=== PATIENT | male | born 1985 | race Caucasian/White ===

== ENCOUNTER 2017-06-16 17:17 | Emergency (ER) | payer SELFPAY ==
[2017-06-16 17:38] VITALS: BP 147/95
[2017-06-16] MEDS ORDERED: LORazepam 1 MG Tab PO ONE (18:31)
--- NOTE | 2017-06-16 18:36 | EDM.PDOC ---
ED HPI GENERAL MEDICAL PROBLEM - General Chief Complaint: Chest Pain Stated Complaint: CHEST Time Seen by Provider: 06/16/17 18:20 Source of Information: Reports: Patient History Limitations: Reports: No Limitations - History of Present Illness INITIAL COMMENTS - FREE TEXT/NARRATIVE: 32 yo male presents with central chest pain for a couple weeks that waxes and wanes, but seems to be getting worse. Has an appt with his primary tomorrow. Is going through a divorce and is very stressed for the past month. Works in a paint shop. Denies fever, injury, calf pain, SOB, wheezing or leg swelling. Has been having a dry mouth and some mild nausea at times. Onset: Gradual Onset Date: 06/02/17 Duration: Week(s):, Waxing/Waning Location: Reports: Chest Quality: Reports: Dull Severity: Mild Improves with: Reports: None Worsens with: Reports: None Context: Reports: Other (under a lot of emotional stress.) Associated Symptoms: Reports: Nausea/Vomiting (mild, intermittent), Other (dry mouth) Treatments BLENDER/BRAZE APPLICATOR: Reports: Other (see below) (none) - Related Data Allergies Allergy/AdvReac Type Severity Reaction Status Date / Time No Known Allergies Allergy Verified 03/26/16 19:55 Home Meds: Home Meds NK [No Known Home Meds] 12/01/14 [History] Past Medical History HEENT History: Reports: Other (See Below) Other HEENT History: Hx strep Genitourinary History: Reports: Renal Calculus Musculoskeletal History: Reports: Fracture Other Musculoskeletal History: radial fx Neurological History: Reports: Migraines - Infectious Disease History Infectious Disease History: Reports: Chicken Pox - Past Surgical History Male Surgical History: Reports: Vasectomy Social & Family History - Tobacco Use Smoking Status *Q: Never Smoker Years of Tobacco use: 6 Packs/Tins Daily: 0.1 Used Tobacco, but Quit: No Second Hand Smoke Exposure: No - Caffeine Use Caffeine Use: Reports: Soda, Tea - Alcohol Use Days Per Week of Alcohol Use: 0 - Recreational Drug Use Recreational Drug Use: No ED ROS GENERAL - Review of Systems Review Of Systems: See Below Constitutional: Reports: No Symptoms HEENT: Reports: No Symptoms Respiratory: Reports: No Symptoms Cardiovascular: Reports: Chest Pain Endocrine: Reports: No Symptoms GI/Abdominal: Reports: Nausea (mild at times) : Reports: No Symptoms Musculoskeletal: Reports: No Symptoms Skin: Reports: No Symptoms Neurological: Reports: No Symptoms ED EXAM, GENERAL - Physical Exam Exam: See Below Exam Limited By: No Limitations General Appearance: Alert, WD/WN, No Apparent Distress Eye Exam: Bilateral Eye: Normal Inspection Ears: Normal External Exam, Normal Canal, Hearing Grossly Normal, Normal TMs Ear Exam: Bilateral Ear: Auricle Normal, Canal Normal Nose: Normal Inspection, Normal Mucosa, No Blood Throat/Mouth: Normal Inspection, Normal Lips, Normal Oropharynx, Normal Voice, No Airway Compromise Head: Atraumatic, Normocephalic Neck: Normal Inspection, Supple, Non-Tender Respiratory/Chest: No Respiratory Distress, Lungs Clear, Normal Breath Sounds, No Accessory Muscle Use Cardiovascular: Regular Rate, Rhythm, No Edema GI/Abdominal: Normal Bowel Sounds, Soft, Non-Tender, No Distention Back Exam: Normal Inspection. No: CVA Tenderness (R), CVA Tenderness (L) Extremities: Normal Inspection, Normal Range of Motion, Non-Tender, No Pedal Edema Neurological: Alert, Oriented, CN II-XII Intact, Normal Cognition, No Motor/ Sensory Deficits Psychiatric: Normal Affect, Normal Mood Skin Exam: Warm, Dry, Intact, Normal Color, No Rash Lymphatic: No Adenopathy Course - Vital Signs Text/Narrative:: Busy ER, patient got tired of waiting for his medication and walked out without notifying anyone. Last Recorded V/S: Last Vital Signs Temp 36.6 C 06/16/17 17:33 Pulse 97 06/16/17 17:33 Resp 20 06/16/17 17:33 BP 147/95 H 06/16/17 17:33 Pulse Ox 100 06/16/17 17:33 - Orders/Labs/Meds Meds: Medications Discontinued Medications Generic Name Dose Route Start Last Admin Trade Name Freq PRN Reason Stop Dose Admin Lorazepam 1 mg 06/16/17 18:31 Ativan PO 06/16/17 18:32 ONETIME ONE Departure - Departure Time of Disposition: 19:12 Disposition: Eloped 07 Condition: Good Clinical Impression: Stress, Anxiety with somatization Referrals: Pawel Dunn MD [Primary Care Provider] - Forms: ED Department Discharge
== END 2017-06-16 18:55 | disposition left against medical advice (07) ==
LOC: JP.ED 17:17
DX: F41.1 Generalized anxiety disorder (principal); F43.0 Acute stress reaction; F45.0 Somatization disorder
CPT/HCPCS: 93005; 93010; 99283; 99285-25

== ENCOUNTER 2017-10-24 17:27 | Emergency (ER) | payer SELFPAY ==
[2017-10-24 18:03] VITALS: BP 139/79
--- NOTE | 2017-10-24 18:24 | EDM.PDOC ---
ED HPI GENERAL MEDICAL PROBLEM - General Chief Complaint: ENT Problem Stated Complaint: SORE THROAT ESPICALL OF LEFT SIDE Time Seen by Provider: 10/24/17 18:00 Source of Information: Reports: Patient History Limitations: Reports: No Limitations - History of Present Illness INITIAL COMMENTS - FREE TEXT/NARRATIVE: 32-year-old male with a sore throat for the past 10-12 days. No fevers or chills , he does have some nasal drainage but no cough. He works away from the hospital and this is his first chance she's had to be checked. He is leaving tomorrow to go back to work for the next 7-14 days. He feels the left side of his neck is swollen and tender. He has developed ear pain today as well. Onset: Gradual Severity: Mild Associated Symptoms: Reports: Other (Left ear pain). Denies: Chest Pain, Cough , Fever/Chills, Malaise, Nausea/Vomiting, Shortness of Breath Throat Pain Score (Numeric/FACES): 6 - Related Data Allergies Allergy/AdvReac Type Severity Reaction Status Date / Time No Known Allergies Allergy Verified 03/26/16 19:55 Home Meds: Home Meds NK [No Known Home Meds] 12/01/14 [History] Past Medical History - Past Health History Medical/Surgical History: Denies Medical/Surgical History HEENT History: Reports: Other (See Below) Other HEENT History: Hx strep Genitourinary History: Reports: Renal Calculus Musculoskeletal History: Reports: Fracture Other Musculoskeletal History: radial fx Neurological History: Reports: Migraines - Infectious Disease History Infectious Disease History: Reports: Chicken Pox - Past Surgical History Male Surgical History: Reports: Vasectomy Social & Family History - Tobacco Use Smoking Status *Q: Current Every Day Smoker Years of Tobacco use: 10 Packs/Tins Daily: 0.5 - Caffeine Use Caffeine Use: Reports: Soda, Tea - Recreational Drug Use Recreational Drug Use: No ED ROS ENT - Review of Systems Review Of Systems: See Below Constitutional: Denies: Fever, Chills HEENT: Reports: Ear Pain, Throat Pain Respiratory: Denies: Shortness of Breath, Cough Cardiovascular: Denies: Chest Pain GI/Abdominal: Denies: Abdominal Pain, Nausea, Vomiting : Reports: No Symptoms Musculoskeletal: Reports: No Symptoms Skin: Denies: Rash Neurological: Denies: Headache ED EXAM, ENT - Physical Exam Exam: See Below Exam Limited By: No Limitations General Appearance: Alert, No Apparent Distress Ears: Normal TMs Mouth/Throat: Pharyngeal Erythema (There is pharyngeal erythema on the left side but no swelling, fluctuance or shift) Head: Atraumatic Neck: Lymphadenopathy (L) (He has lymphadenopathy which is tender on the left side of the anterior cervical chain. No erythema or warmth) Respiratory/Chest: No Respiratory Distress Course - Vital Signs Last Recorded V/S: Last Vital Signs Temp 98.6 F 10/24/17 17:59 Pulse 88 10/24/17 17:59 Resp 16 10/24/17 17:59 BP 139/79 10/24/17 17:59 Pulse Ox 99 10/24/17 17:59 - Re-Assessments/Exams Free Text/Narrative Re-Assessment/Exam: 10/24/17 18:22 Patient will be placed on amoxicillin 500 mg 3 times a day for 10 days and should continue the medication if improving. He will be out of town for a culture result with strep so that will be deferred. He will recheck when home if he hasn't improved on the antibiotic, he may need more evaluation of the lymphadenopathy. Departure - Departure Time of Disposition: 18:29 Disposition: Home, Self-Care 01 Condition: Good Clinical Impression: Lymphadenopathy of head and neck Pharyngitis Qualifiers: Pharyngitis/tonsillitis etiology: unspecified etiology Qualified Code(s): J02.9 - Acute pharyngitis, unspecified - Discharge Information Instructions: Pharyngitis, [id number] Referrals: Pawel Dunn MD [Primary Care Provider] - Forms: ED Department Discharge Care Plan Goals: Take antibiotic 3 times a day, continue with ibuprofen and stay hydrated. Finish antibiotic if improving, and recheck when home if not significantly improved despite treatment. Recheck sooner if possible if worsening.
== END 2017-10-24 18:29 | disposition home or self-care (01) ==
LOC: JP.ED 17:27
DX: J02.9 Acute pharyngitis, unspecified (principal); F17.210 Nicotine dependence, cigarettes, uncomplicated
CPT/HCPCS: 99283

== ENCOUNTER 2019-02-28 09:55 | Emergency (ER) | payer SELFPAY ==
[2019-02-28 10:09] VITALS: BP 149/103; PULSE 84
[2019-02-28] MEDS ORDERED: Ondansetron 4 MG/2 ML SDV IVPUSH ONE (10:35)
[2019-02-28] MEDS ORDERED: Pantoprazole 40 MG Vial IVPUSH ONE (10:35)
--- NOTE | 2019-02-28 10:36 | EDM.PDOC ---
ED HPI GENERAL MEDICAL PROBLEM - General Chief Complaint: ENT Problem Stated Complaint: VOMITING,SORE THROAT Time Seen by Provider: 02/28/19 10:34 Source of Information: Reports: Patient History Limitations: Reports: No Limitations - History of Present Illness INITIAL COMMENTS - FREE TEXT/NARRATIVE: pt arrived compaining of a very sore throat. he has been vomiting for the past 36 hours. He states he is not having abdomanal pain. Onset: Other (pt has been vomiting for the past 2 days and has not been able to hold anything down. ) Duration: Hour(s): Location: Reports: Abdomen, Generalized, Other (pt is feeling very weak and shakey. ) Associated Symptoms: Reports: Nausea/Vomiting, Weakness - Related Data Allergies Allergy/AdvReac Type Severity Reaction Status Date / Time No Known Allergies Allergy Verified 03/26/16 19:55 Home Meds: Home Meds NK [No Known Home Meds] 12/01/14 [History] Past Medical History - Past Health History Medical/Surgical History: Denies Medical/Surgical History HEENT History: Reports: Other (See Below) Other HEENT History: Hx strep Genitourinary History: Reports: Renal Calculus Musculoskeletal History: Reports: Fracture Other Musculoskeletal History: radial fx Neurological History: Reports: Migraines - Infectious Disease History Infectious Disease History: Reports: Chicken Pox - Past Surgical History Male Surgical History: Reports: Vasectomy Social & Family History - Tobacco Use Smoking Status *Q: Heavy Tobacco Smoker Years of Tobacco use: 15 Packs/Tins Daily: 0.5 - Caffeine Use Caffeine Use: Reports: Soda - Recreational Drug Use Recreational Drug Use: No ED ROS GENERAL - Review of Systems Review Of Systems: See Below Constitutional: Reports: Weakness, Fatigue HEENT: Reports: No Symptoms Respiratory: Reports: No Symptoms Cardiovascular: Reports: No Symptoms Endocrine: Reports: No Symptoms GI/Abdominal: Reports: Decreased Appetite, Nausea, Vomiting : Reports: No Symptoms Musculoskeletal: Reports: No Symptoms Skin: Reports: No Symptoms ED EXAM, DIZZINESS - Physical Exam Exam: See Below Text/Narrative:: pt arrived after vomiting for the past 36 hours. He has a very sore throat. He thinks this is from vomiting. Exam Limited By: No Limitations General Appearance: Alert, Anxious, Mild Distress Ears: Normal TMs Nose: Normal Inspection Throat/Mouth: Other ( throat does look red. He did have a strept and this was neg. ) Head Exam: Atraumatic Neck: Normal Inspection Respiratory/Chest: No Respiratory Distress Cardiovascular: Regular Rate, Rhythm, Tachycardia GI/Abdominal: Other ( no guarding or tenderness. ) (Male) Exam: Deferred Rectal (Males) Exam: Deferred Neurological: Alert, Oriented x 3 Back Exam: Normal Inspection Extremities: Normal Inspection Psychiatric: Anxious Course - Vital Signs Last Recorded V/S: Last Vital Signs Temp 36.8 C 02/28/19 10:09 Pulse 84 02/28/19 10:09 Resp 18 02/28/19 10:09 BP 149/103 H 02/28/19 10:09 Pulse Ox 99 02/28/19 10:09 - Orders/Labs/Meds Labs: Laboratory Tests 02/28/19 02/28/19 02/28/19 Range/Units 10:38 10:47 10:47 WBC 9.1 (4.5-11.0) K/uL RBC 4.96 (4.30-5.90) M/uL Hgb 15.5 H (12.0-15.0) g/dL Hct 45.3 (40.0-54.0) % MCV 91 (80-98) fL MCH 31 (27-31) pg MCHC 34 (32-36) % Plt Count 227 (150-400) K/uL Neut % (Auto) 83 H (36-66) % Lymph % (Auto) 7 L (24-44) % [place] % (Auto) 8 H (2-6) % Eos % (Auto) 1 L (2-4) % Baso % (Auto) 1 (0-1) % Sodium 138 L (140-148) mmol/L Potassium 3.4 L (3.6-5.2) mmol/L Chloride 98 L (100-108) mmol/L Carbon Dioxide 29 (21-32) mmol/L Anion Gap 14.4 H (5.0-14.0) mmol/L BUN 9 (7-18) mg/dL Creatinine 1.2 (0.8-1.3) mg/dL Est Cr Clr Drug Dosing 87.88 mL/min Estimated GFR (MDRD) > 60 (>60) Glucose 100 (74-106) mg/dL Calcium 9.1 (8.5-10.1) mg/dL Total Bilirubin 0.5 (0.2-1.0) mg/dL AST 36 (15-37) U/L ALT 35 (12-78) U/L Alkaline Phosphatase 61 (46-116) U/L C-Reactive Protein (0.0-0.3) mg/dL Total Protein 7.4 (6.4-8.2) g/dL Albumin 3.9 (3.4-5.0) g/dL Globulin 3.5 (2.3-3.5) g/dL Albumin/Globulin Ratio 1.1 L (1.2-2.2) Urine Color Yellow (YELLOW) Urine Appearance Clear (CLEAR) Urine pH 8.0 (5.0-8.0) Ur Specific [place] 1.015 (1.008-1.030) Urine Protein Negative (NEGATIVE) mg/dL Urine Glucose (UA) Negative (NEGATIVE) mg/dL Urine Ketones Negative (NEGATIVE) mg/dL Urine Occult Blood Negative (NEGATIVE) Urine Nitrite Negative (NEGATIVE) Urine Bilirubin Negative (NEGATIVE) Urine Urobilinogen 0.2 (0.2-1.0) EU/dL Ur Leukocyte Esterase Negative (NEGATIVE) Urine RBC 0-5 (0-5) Urine WBC 0-5 (0-5) Ur Epithelial Cells Few Amorphous Sediment Not seen Urine Bacteria Few Urine Mucus Not seen 02/28/19 Range/Units 10:47 WBC (4.5-11.0) K/uL RBC (4.30-5.90) M/uL Hgb (12.0-15.0) g/dL Hct (40.0-54.0) % MCV (80-98) fL MCH (27-31) pg MCHC (32-36) % Plt Count (150-400) K/uL Neut % (Auto) (36-66) % Lymph % (Auto) (24-44) % [place] % (Auto) (2-6) % Eos % (Auto) (2-4) % Baso % (Auto) (0-1) % Sodium (140-148) mmol/L Potassium (3.6-5.2) mmol/L Chloride (100-108) mmol/L Carbon Dioxide (21-32) mmol/L Anion Gap (5.0-14.0) mmol/L BUN (7-18) mg/dL Creatinine (0.8-1.3) mg/dL Est Cr Clr Drug Dosing mL/min Estimated GFR (MDRD) (>60) Glucose (74-106) mg/dL Calcium (8.5-10.1) mg/dL Total Bilirubin (0.2-1.0) mg/dL AST (15-37) U/L ALT (12-78) U/L Alkaline Phosphatase (46-116) U/L C-Reactive Protein < 0.05 (0.0-0.3) mg/dL Total Protein (6.4-8.2) g/dL Albumin (3.4-5.0) g/dL Globulin (2.3-3.5) g/dL Albumin/Globulin Ratio (1.2-2.2) Urine Color (YELLOW) Urine Appearance (CLEAR) Urine pH (5.0-8.0) Ur Specific [place] (1.008-1.030) Urine Protein (NEGATIVE) mg/dL Urine Glucose (UA) (NEGATIVE) mg/dL Urine Ketones (NEGATIVE) mg/dL Urine Occult Blood (NEGATIVE) Urine Nitrite (NEGATIVE) Urine Bilirubin (NEGATIVE) Urine Urobilinogen (0.2-1.0) EU/dL Ur Leukocyte Esterase (NEGATIVE) Urine RBC (0-5) Urine WBC (0-5) Ur Epithelial Cells Amorphous Sediment Urine Bacteria Urine Mucus Meds: Medications Discontinued Medications Generic Name Dose Route Start Last Admin Trade Name Freq PRN Reason Stop Dose Admin Lidocaine HCl 30 ml/ Al 0 ml 02/28/19 11:18 Hydroxide/Mg Hydroxide 30 ml/ MUCMEM Diphenhydramine HCl 75 mg Q4H PRN MOUTH CARE Lidocaine HCl 5 ml/ Al 0 ml 02/28/19 11:34 02/28/19 11:48 Hydroxide/Mg Hydroxide 5 ml/ MUCMEM 15 ml Diphenhydramine HCl 12.5 mg Q4H PRN Administration MOUTH CARE Al Hydroxide/Mg Hydroxide 15 0 ml 02/28/19 12:19 02/28/19 12:38 ml/ Lidocaine HCl 15 ml PO 02/28/19 12:20 15 ml ONETIME ONE Administration Sodium Chloride 1,000 mls @ 999 mls/hr 02/28/19 10:45 02/28/19 10:46 Normal Saline IV 999 mls/hr ASDIRECTED ZAKIA Administration Sodium Chloride 1,000 mls @ 999 mls/hr 02/28/19 11:30 02/28/19 11:48 Normal Saline IV 999 mls/hr ASDIRECTED ZAKIA Administration Ondansetron HCl 4 mg 02/28/19 10:35 02/28/19 10:46 Zofran IVPUSH 02/28/19 10:36 4 mg ONETIME ONE Administration Pantoprazole Sodium 40 mg 02/28/19 10:35 02/28/19 10:46 Protonix Iv IVPUSH 02/28/19 10:36 40 mg ONETIME ONE Administration - Re-Assessments/Exams Free Text/Narrative Re-Assessment/Exam: 03/07/19 19:54 pt was given 2 liters of fluid and zoforan. He was having ice chips and tolerated that. He was informed about his strept and labs. Before we could in with the discharge papers he did leave. Departure - Departure Time of Disposition: 15:45 Disposition: Eloped 07 Condition: Fair Clinical Impression: Gastroenteritis, Dehydration - Discharge Information Referrals: Pawel Dunn MD [Primary Care Provider] - Forms: ED Department Discharge Care Plan Goals: pt dung
[2019-02-28] MEDS ORDERED: Sodium Chloride 0.9% 1,000 ML IV SCH ×2 (10:45→11:30)
[2019-02-28] MEDS ORDERED: Lidocaine 2% 30 ML, Alum Hydrox/Mag Hydrox/Simeth 30 ML, diphenhydrAMINE 75 MG MUCMEM PRN ×3 (11:18)
[2019-02-28] MEDS ORDERED: Lidocaine 2% 5 ML, Alum Hydrox/Mag Hydrox/Simeth 5 ML, diphenhydrAMINE 12.5 MG MUCMEM PRN ×3 (11:34)
[2019-02-28] MEDS ORDERED: Alum Hydrox/Mag Hydrox/Simeth 15 ML, Lidocaine 2% 15 ML PO ONE ×2 (12:19)
== END 2019-02-28 14:45 | disposition left against medical advice (07) ==
LOC: JP.ED 09:55
DX: K52.9 Noninfective gastroenteritis and colitis, unspecified (principal); E86.0 Dehydration; F17.210 Nicotine dependence, cigarettes, uncomplicated
CPT/HCPCS: 36415; 80053; 81001; 85025; 86140; 87081; 87880; 96361; 96374; 96375; 99283; A9270; C9113; J2405; J7030

== ENCOUNTER 2020-04-30 21:48 | Emergency (ER) | payer MEDICAID ==
--- NOTE | 2020-04-30 22:38 | EDM.PDOCBH ---
<OfficerMacario - Last Filed: 04/30/20 22:35> ED HPI GENERAL MEDICAL PROBLEM - General Chief Complaint: Drug or Alcohol Abuse Stated Complaint: EVAL Time Seen by Provider: 04/30/20 22:27 Source of Information: Reports: Patient, Family, RN Notes Reviewed History Limitations: Reports: Intoxication - History of Present Illness INITIAL COMMENTS - FREE TEXT/NARRATIVE: 35-year-old gentleman presents emergency department today for psychiatric evaluation, he admits to consuming a large amount of alcohol today he is brought in by family members he states he has contemplating harming himself with a firearm which is why he was brought in however he does not admit this to me he does admit to consuming alcohol states he just has thoughts of suicide left eye Pain Score (Numeric/FACES): 3 - Related Data Allergies Allergy/AdvReac Type Severity Reaction Status Date / Time No Known Allergies Allergy Verified 04/30/20 21:57 Home Meds: Home Meds NK [No Known Home Meds] 12/01/14 [History] Past Medical History HEENT History: Reports: Other (See Below) Other HEENT History: Hx strep Cardiovascular History: Reports: Hypertension Gastrointestinal History: Reports: GERD Genitourinary History: Reports: Renal Calculus Musculoskeletal History: Reports: Fracture Other Musculoskeletal History: radial fx Neurological History: Reports: Migraines Psychiatric History: Reports: Addiction, Anxiety, Depression, Suicidal Ideation, Other (See Below) Other Psychiatric History: ETOH - Infectious Disease History Infectious Disease History: Reports: Chicken Pox - Past Surgical History Male Surgical History: Reports: Vasectomy Social & Family History - Tobacco Use Tobacco Use Status *Q: Current Every Day Tobacco User Years of Tobacco use: 15 Packs/Tins Daily: 1 - Caffeine Use Caffeine Use: Reports: Energy Drinks, Soda - Recreational Drug Use Recreational Drug Use: No ED ROS GENERAL - Review of Systems Review Of Systems: See Below Constitutional: Reports: No Symptoms HEENT: Reports: No Symptoms Respiratory: Reports: No Symptoms Cardiovascular: Reports: No Symptoms GI/Abdominal: Reports: No Symptoms Neurological: Reports: No Symptoms Psychiatric: Reports: Depression, Suicidal Ideation ED EXAM, BEHAVIORAL HEALTH - Physical Exam Exam: See Below Text/Narrative:: Orientated to person place and time, appropriately dressed, well groomed, memory to recent and remote events intact, good attention and concentration, speech is of adequate rate tone and volume, good fund of knowledge, language is appropriate, Mood and affect are depressed, no pressured thoughts, positive for suicidal ideation, denies homicidal ideation, no hallucinations visual or auditory, poor judgment, poor insight Exam Limited By: Intoxication General Appearance: Alert, WD/WN, No Apparent Distress Respiratory/Chest: No Respiratory Distress, Lungs Clear, Normal Breath Sounds, No Accessory Muscle Use, Chest Non-Tender Cardiovascular: Regular Rate, Rhythm, No Murmur Departure - Departure Disposition: DC/Tfer to Other 70 Clinical Impression: Alcohol abuse - Discharge Information Instructions: Alcohol Use Disorder Referrals: Pawel Dunn MD [Primary Care Provider] - Forms: ED Department Discharge Care Plan Goals: Go directly to [facility] to be admitted for detox and initiation of treatment for chronic alcohol abuse. Sepsis Event Note (ED) - Evaluation Sepsis Screening Result: No Definite Risk <Fransico Bowser - Last Filed: 05/01/20 12:35> COURSE, BEHAVIORAL HEALTH COMP - Course Vital Signs: Last Vital Signs Temp 98.2 F 04/30/20 22:25 Pulse 89 05/01/20 08:52 Resp 16 05/01/20 08:52 BP 138/96 H 05/01/20 08:52 Pulse Ox 98 05/01/20 08:52 Orders, Labs, Meds: Laboratory Tests 04/30/20 04/30/20 04/30/20 Range/Units 22:50 22:50 22:50 WBC 7.8 (4.5-11.0) K/uL RBC 5.42 (4.30-5.90) M/uL Hgb 16.7 H (12.0-15.0) g/dL Hct 50.2 (40.0-54.0) % MCV 93 (80-98) fL MCH 31 (27-31) pg MCHC 33 (32-36) % Plt Count 200 (150-400) K/uL Neut % (Auto) 63 (36-66) % Lymph % (Auto) 30 (24-44) % [place] % (Auto) 5 (2-6) % Eos % (Auto) 1 L (2-4) % Baso % (Auto) 1 (0-1) % Sodium 141 (140-148) mmol/L Potassium 4.0 (3.6-5.2) mmol/L Chloride 99 L (100-108) mmol/L Carbon Dioxide 32 (21-32) mmol/L Anion Gap 14.0 (5.0-14.0) mmol/L BUN 12 (7-18) mg/dL Creatinine 1.3 (0.8-1.3) mg/dL Est Cr Clr Drug Dosing 82.67 mL/min Estimated GFR (MDRD) > 60 (>60) Glucose 104 (74-106) mg/dL Calcium 9.1 (8.5-10.1) mg/dL Total Bilirubin 0.3 (0.2-1.0) mg/dL AST 42 H (15-37) U/L ALT 43 (12-78) U/L Alkaline Phosphatase 76 (46-116) U/L Total Protein 7.7 (6.4-8.2) g/dL Albumin 4.0 (3.4-5.0) g/dL Globulin 3.7 H (2.3-3.5) g/dL Albumin/Globulin Ratio 1.1 L (1.2-2.2) Urine Opiates Screen Negative (NEGATIVE) Ur Oxycodone Screen Negative (NEGATIVE) Urine Methadone Screen Negative (NEGATIVE) Ur Propoxyphene Screen Negative (NEGATIVE) Ur Barbiturates Screen Negative (NEGATIVE) Ur Tricyclics Screen Negative (NEGATIVE) Ur Phencyclidine Scrn Negative (NEGATIVE) Ur Amphetamine Screen Negative (NEGATIVE) U Methamphetamines Scrn Negative (NEGATIVE) Urine MDMA Screen Negative (NEGATIVE) U Benzodiazepines Scrn Negative (NEGATIVE) U Cocaine Metab Screen Negative (NEGATIVE) U Marijuana (THC) Screen Negative (NEGATIVE) Ethyl Alcohol mg/dL 04/30/20 Range/Units 22:50 WBC (4.5-11.0) K/uL RBC (4.30-5.90) M/uL Hgb (12.0-15.0) g/dL Hct (40.0-54.0) % MCV (80-98) fL MCH (27-31) pg MCHC (32-36) % Plt Count (150-400) K/uL Neut % (Auto) (36-66) % Lymph % (Auto) (24-44) % [place] % (Auto) (2-6) % Eos % (Auto) (2-4) % Baso % (Auto) (0-1) % Sodium (140-148) mmol/L Potassium (3.6-5.2) mmol/L Chloride (100-108) mmol/L Carbon Dioxide (21-32) mmol/L Anion Gap (5.0-14.0) mmol/L BUN (7-18) mg/dL Creatinine (0.8-1.3) mg/dL Est Cr Clr Drug Dosing mL/min Estimated GFR (MDRD) (>60) Glucose (74-106) mg/dL Calcium (8.5-10.1) mg/dL Total Bilirubin (0.2-1.0) mg/dL AST (15-37) U/L ALT (12-78) U/L Alkaline Phosphatase (46-116) U/L Total Protein (6.4-8.2) g/dL Albumin (3.4-5.0) g/dL Globulin (2.3-3.5) g/dL Albumin/Globulin Ratio (1.2-2.2) Urine Opiates Screen (NEGATIVE) Ur Oxycodone Screen (NEGATIVE) Urine Methadone Screen (NEGATIVE) Ur Propoxyphene Screen (NEGATIVE) Ur Barbiturates Screen (NEGATIVE) Ur Tricyclics Screen (NEGATIVE) Ur Phencyclidine Scrn (NEGATIVE) Ur Amphetamine Screen (NEGATIVE) U Methamphetamines Scrn (NEGATIVE) Urine MDMA Screen (NEGATIVE) U Benzodiazepines Scrn (NEGATIVE) U Cocaine Metab Screen (NEGATIVE) U Marijuana (THC) Screen (NEGATIVE) Ethyl Alcohol 298 mg/dL Medications Discontinued Medications Generic Name Dose Route Start Last Admin Trade Name Freq PRN Reason Stop Dose Admin Lorazepam 1 mg 05/01/20 04:43 05/01/20 04:47 Ativan PO 05/01/20 04:44 1 mg ONETIME ONE Administration Lorazepam 1 mg 05/01/20 09:42 05/01/20 09:52 Ativan IM 05/01/20 09:43 1 mg ONETIME ONE Administration Ondansetron HCl 4 mg 05/01/20 09:42 05/01/20 09:52 Zofran Odt PO 05/01/20 09:43 4 mg ONETIME ONE Administration Re-Assessment/Re-Exam: 35-year-old male who arrived 10 hours ago intoxicated with suicidal ideations was turned over to my care by Officer. Patient is now woke up and is no longer suicidal but wants to go to detox and get help. [facility] does have a bed available, we will attempt to get him out there to initiate treatment. Prior to being accepted to detox, the patient developed some nausea and vomiting and became anxious. He was given 1 mg of IM Ativan and a sublingual Zofran. Patient was accepted at [facility] and transferred by his ex-. Departure - Departure Time of Disposition: 10:26 Sepsis Event Note (ED) - Focused Exam Vital Signs: Vital Signs Pulse Resp BP Pulse Ox 05/01/20 08:52 89 16 138/96 H 98
[2020-05-01] MEDS ORDERED: LORazepam 1 MG Tab PO ONE (04:43)
[2020-05-01 08:53] VITALS: BP 138/96; PULSE 89
[2020-05-01] MEDS ORDERED: Ondansetron 4 MG Tab.DIS PO ONE (09:42)
[2020-05-01] MEDS ORDERED: LORazepam 2 MG/ML SDV IM ONE (09:42)
== END 2020-05-01 10:48 | disposition other institution (70) ==
LOC: JP.ED 21:48
DX: F10.129 Alcohol abuse with intoxication, unspecified (principal); R45.851 Suicidal ideations; I10 Essential (primary) hypertension; F17.210 Nicotine dependence, cigarettes, uncomplicated; Y90.8 Blood alcohol level of 240 mg/100 ml or more
CPT/HCPCS: 36415; 80053; 80305; 80307; 85025; 96372; 99283; 99284; A9270; J2060

== ENCOUNTER 2020-05-11 00:04 | Emergency (ER) | payer MEDICAID ==
[2020-05-11] MEDS ORDERED: LORazepam 1 MG Tab PO ONE ×3 (00:52→01:50)
[2020-05-11] MEDS ORDERED: Thiamine 100 MG Tab PO ONE (00:53)
[2020-05-11] MEDS ORDERED: Ondansetron 4 MG Tab.DIS PO ONE (00:56)
[2020-05-11] MEDS ORDERED: Sodium Chloride 0.9% 10 ML Syringe FLUSH PRN (01:03)
--- NOTE | 2020-05-11 01:04 | EDM.PDOCBH ---
ED HPI GENERAL MEDICAL PROBLEM - General Chief Complaint: Drug or Alcohol Abuse Stated Complaint: WITHDRAWL SYMPTOMS Time Seen by Provider: 05/11/20 00:50 Source of Information: Reports: Patient, RN. Denies: Old Records History Limitations: Reports: No Limitations - History of Present Illness INITIAL COMMENTS - FREE TEXT/NARRATIVE: 35 yo male who drinks about a liter of vodka daily presents with shakes and a request for help for his drinking problem. He plans on going next week to a rehab facility in [place] near where his mother lives. He stopped drinking about 24 hrs ago. He has not had seizures from quitting drinking, but states he can't remember the last time he didn't drink. No blood in stool or in his emesis, but is vomiting often today. Denies use of other drugs. Onset: Gradual Onset Date: 05/10/20 Duration: Day(s): (1), Getting Worse Location: Reports: Generalized Quality: Reports: Other (abdominal pain from vomiting so many times) Severity: Severe Improves with: Reports: None Worsens with: Reports: Other (time) Context: Reports: Other (See HPI) Associated Symptoms: Reports: Nausea/Vomiting, Other (tremor) Treatments APICULTURIST: Reports: Other (see below) (none) denies pain Pain Score (Numeric/FACES): 0 - Related Data Allergies Allergy/AdvReac Type Severity Reaction Status Date / Time No Known Allergies Allergy Verified 05/11/20 01:23 Home Meds: Home Meds NK [No Known Home Meds] 12/01/14 [History] Past Medical History HEENT History: Reports: Other (See Below) Other HEENT History: Hx strep Cardiovascular History: Reports: Hypertension Gastrointestinal History: Reports: GERD Genitourinary History: Reports: Renal Calculus Musculoskeletal History: Reports: Fracture Other Musculoskeletal History: radial fx Neurological History: Reports: Migraines Psychiatric History: Reports: Addiction, Anxiety, Depression, Suicidal Ideation, Other (See Below) Other Psychiatric History: ETOH - Infectious Disease History Infectious Disease History: Reports: Chicken Pox - Past Surgical History Male Surgical History: Reports: Vasectomy Social & Family History - Caffeine Use Caffeine Use: Reports: Energy Drinks, Soda - Recreational Drug Use Recreational Drug Use: No ED ROS GENERAL - Review of Systems Review Of Systems: See Below Constitutional: Reports: Malaise, Decreased Appetite HEENT: Reports: No Symptoms Respiratory: Reports: No Symptoms Cardiovascular: Reports: Palpitations Endocrine: Reports: No Symptoms GI/Abdominal: Reports: Abdominal Pain, Nausea, Vomiting. Denies: Black Stool, Bloody Stool, Constipation, Diarrhea, Hematemesis, Hematochezia, Melena : Reports: No Symptoms Musculoskeletal: Reports: No Symptoms Skin: Reports: No Symptoms Neurological: Reports: Other (tremors) Psychiatric: Reports: Anxiety ED EXAM, BEHAVIORAL HEALTH - Physical Exam Exam: See Below Exam Limited By: No Limitations General Appearance: Alert, WD/WN, Moderate Distress Eye Exam: Bilateral Eye: Normal Inspection Ears: Normal External Exam, Normal Canal, Hearing Grossly Normal, Normal TMs Nose: Normal Inspection, No Blood Throat/Mouth: Normal Inspection, Normal Lips, Normal Oropharynx, Normal Voice, No Airway Compromise Head: Atraumatic, Normocephalic Neck: Normal Inspection Respiratory/Chest: No Respiratory Distress, Lungs Clear, Normal Breath Sounds, No Accessory Muscle Use Cardiovascular: Regular Rate, Rhythm, No Edema, Tachycardia GI/Abdominal: Normal Bowel Sounds, Soft, No Distention, Tender (epigastric and RUQ). No: Distended Back Exam: Normal Inspection Extremities: Normal Inspection, Normal Range of Motion, Non-Tender, No Pedal Edema Neurological: Alert, Normal Mood/Affect, CN II-XII Intact, Normal Cognition, No Motor/Sensory Deficits, Oriented x 3 Psychiatric: Alert, Normal Affect, Normal Cognition, Normal Mood, Restless Skin Exam: Warm, Dry, Intact, Normal color, No rash COURSE, BEHAVIORAL HEALTH COMP - Course Vital Signs: Last Vital Signs Temp 36.4 C 05/11/20 00:56 Pulse 87 05/11/20 01:14 Resp 18 05/11/20 00:56 BP 166/104 H 05/11/20 01:14 Pulse Ox 99 05/11/20 00:56 Orders, Labs, Meds: Active Orders 24 hr Category Date Time Status Sodium Chloride 0.9% [Saline Flush] Med 05/11/20 01:03 Active 10 ml FLUSH ASDIRECTED PRN Saline Lock Insert [OM.PC] Routine Oth 05/11/20 01:03 Ordered Medication Orders Sodium Chloride (Saline Flush) 10 ml FLUSH ASDIRECTED PRN PRN Reason: Keep Vein Open Last Admin: 05/11/20 01:06 Dose: 10 ml Documented by: PINO Laboratory Tests 05/11/20 05/11/20 05/11/20 Range/Units 01:11 01:11 01:11 WBC 8.2 (4.5-11.0) K/uL RBC 5.02 (4.30-5.90) M/uL Hgb 15.7 H (12.0-15.0) g/dL Hct 46.7 (40.0-54.0) % MCV 93 (80-98) fL MCH 31 (27-31) pg MCHC 34 (32-36) % Plt Count 157 (150-400) K/uL Sodium 135 L (140-148) mmol/L Potassium 3.7 (3.6-5.2) mmol/L Chloride 94 L (100-108) mmol/L Carbon Dioxide 27 (21-32) mmol/L Anion Gap 17.7 H (5.0-14.0) mmol/L BUN 7 (7-18) mg/dL Creatinine 1.1 (0.8-1.3) mg/dL Est Cr Clr Drug Dosing 97.70 mL/min Estimated GFR (MDRD) > 60 (>60) Glucose 108 H (74-106) mg/dL Calcium 9.1 (8.5-10.1) mg/dL Magnesium (1.8-2.4) mg/dL Total Bilirubin 0.5 D (0.2-1.0) mg/dL AST 74 H D (15-37) U/L ALT 64 (12-78) U/L Alkaline Phosphatase 75 (46-116) U/L Total Protein 7.8 (6.4-8.2) g/dL Albumin 4.0 (3.4-5.0) g/dL Globulin 3.8 H (2.3-3.5) g/dL Albumin/Globulin Ratio 1.1 L (1.2-2.2) Urine Opiates Screen (NEGATIVE) Ur Oxycodone Screen (NEGATIVE) Urine Methadone Screen (NEGATIVE) Ur Propoxyphene Screen (NEGATIVE) Ur Barbiturates Screen (NEGATIVE) Ur Tricyclics Screen (NEGATIVE) Ur Phencyclidine Scrn (NEGATIVE) Ur Amphetamine Screen (NEGATIVE) U Methamphetamines Scrn (NEGATIVE) Urine MDMA Screen (NEGATIVE) U Benzodiazepines Scrn (NEGATIVE) U Cocaine Metab Screen (NEGATIVE) U Marijuana (THC) Screen (NEGATIVE) Ethyl Alcohol 7 mg/dL 05/11/20 05/11/20 Range/Units 01:11 01:27 WBC (4.5-11.0) K/uL RBC (4.30-5.90) M/uL Hgb (12.0-15.0) g/dL Hct (40.0-54.0) % MCV (80-98) fL MCH (27-31) pg MCHC (32-36) % Plt Count (150-400) K/uL Sodium (140-148) mmol/L Potassium (3.6-5.2) mmol/L Chloride (100-108) mmol/L Carbon Dioxide (21-32) mmol/L Anion Gap (5.0-14.0) mmol/L BUN (7-18) mg/dL Creatinine (0.8-1.3) mg/dL Est Cr Clr Drug Dosing mL/min Estimated GFR (MDRD) (>60) Glucose (74-106) mg/dL Calcium (8.5-10.1) mg/dL Magnesium 1.3 L (1.8-2.4) mg/dL Total Bilirubin (0.2-1.0) mg/dL AST (15-37) U/L ALT (12-78) U/L Alkaline Phosphatase (46-116) U/L Total Protein (6.4-8.2) g/dL Albumin (3.4-5.0) g/dL Globulin (2.3-3.5) g/dL Albumin/Globulin Ratio (1.2-2.2) Urine Opiates Screen Negative (NEGATIVE) Ur Oxycodone Screen Negative (NEGATIVE) Urine Methadone Screen Negative (NEGATIVE) Ur Propoxyphene Screen Negative (NEGATIVE) Ur Barbiturates Screen Negative (NEGATIVE) Ur Tricyclics Screen Negative (NEGATIVE) Ur Phencyclidine Scrn Negative (NEGATIVE) Ur Amphetamine Screen Negative (NEGATIVE) U Methamphetamines Scrn Negative (NEGATIVE) Urine MDMA Screen Negative (NEGATIVE) U Benzodiazepines Scrn Presumptive positive H (NEGATIVE) U Cocaine Metab Screen Negative (NEGATIVE) U Marijuana (THC) Screen Negative (NEGATIVE) Ethyl Alcohol mg/dL Medications Generic Name Dose Route Start Last Admin Trade Name Freq PRN Reason Stop Dose Admin Sodium Chloride 10 ml 05/11/20 01:03 05/11/20 01:06 Saline Flush FLUSH 10 ml ASDIRECTED PRN Administration Keep Vein Open Discontinued Medications Generic Name Dose Route Start Last Admin Trade Name Gage PRN Reason Stop Dose Admin Lorazepam 1 mg 05/11/20 00:52 05/11/20 01:05 Ativan PO 05/11/20 00:53 1 mg ONETIME ONE Administration Lorazepam 1 mg 05/11/20 00:58 05/11/20 01:05 Ativan PO 05/11/20 00:59 1 mg ONETIME ONE Administration Ondansetron HCl 4 mg 05/11/20 00:56 05/11/20 01:05 Zofran Odt PO 05/11/20 00:57 4 mg ONETIME ONE Administration Thiamine HCl 100 mg 05/11/20 00:53 05/11/20 01:05 Vitamin B-1 PO 05/11/20 00:54 100 mg ONETIME ONE Administration Re-Assessment/Re-Exam: Refuses detox at [facility], wants to go home tonight and will drive tomorrow to the facility in [place] that he is determined to go to. Departure - Departure Time of Disposition: 01:50 Disposition: Home, Self-Care 01 Condition: Poor Clinical Impression: Alcohol dependence Qualifiers: Substance use status: in withdrawal Complication of substance-induced condition: uncomplicated Qualified Code(s): F10.230 - Alcohol dependence with withdrawal, uncomplicated - Discharge Information *PRESCRIPTION DRUG MONITORING PROGRAM REVIEWED*: Not Applicable *COPY OF PRESCRIPTION DRUG MONITORING REPORT IN PATIENT WILLIE: Not Applicable Instructions: Alcohol Abuse and Dependence Information, Adult Referrals: PCP,None [Primary Care Provider] - Forms: ED Department Discharge Additional Instructions: Take lorazepam as needed to prevent withdrawal symptoms. Go directly to your treatment facility tomorrow. Driving by you is not advised. Sepsis Event Note (ED) - Evaluation Sepsis Screening Result: No Definite Risk - Focused Exam Vital Signs: Vital Signs Temp Pulse Resp BP Pulse Ox 05/11/20 01:14 87 166/104 H 05/11/20 00:56 36.4 C 107 H 18 169/138 H 99 05/11/20 00:53 36.4 C 107 H 18 169/138 H 99 - My Orders Last 24 Hours: My Active Orders 05/11/20 01:03 Sodium Chloride 0.9% [Saline Flush] 10 ml FLUSH ASDIRECTED PRN Saline Lock Insert [OM.PC] Routine - Assessment/Plan Last 24 Hours: My Active Orders 05/11/20 01:03 Sodium Chloride 0.9% [Saline Flush] 10 ml FLUSH ASDIRECTED PRN Saline Lock Insert [OM.PC] Routine
[2020-05-11 01:15] VITALS: BP 166/104; PULSE 87
== END 2020-05-11 02:04 | disposition home or self-care (01) ==
LOC: JP.ED 00:04
DX: F10.230 Alcohol dependence with withdrawal, uncomplicated (principal); Y90.6 Blood alcohol level of 120-199 mg/100 ml; I10 Essential (primary) hypertension
CPT/HCPCS: 36415; 80053; 80305; 80307; 83735; 85027; 99284; A9270

== ENCOUNTER 2020-08-21 08:34 | Emergency (ER) | payer MEDICAID ==
[2020-08-21 08:47] VITALS: BP 166/115; PULSE 132
== END 2020-08-21 08:51 | disposition left against medical advice (07) ==
LOC: JP.ED 08:34
DX: Z53.21 Procedure and treatment not carried out due to patient leaving prior to being seen by health care provider (principal)

== ENCOUNTER 2021-10-21 01:57 | Emergency (ER) | payer MEDICAID ==
[2021-10-21] MEDS ORDERED: Amoxicillin 500 MG Cap ONE (03:05)
[2021-10-21] MEDS ORDERED: Amoxicillin 500 MG Cap PO ONE (05:15)
[2021-10-21 05:32] VITALS: BP 151/100; PULSE 103
== END 2021-10-21 05:33 | disposition home or self-care (01) ==
LOC: JP.ED 01:57
DX: K64.9 Unspecified hemorrhoids (principal)
CPT/HCPCS: 99283; A9270-GY

== ENCOUNTER 2023-09-27 23:00 | Emergency (ER) | payer MEDICAID ==
[2023-09-27] MEDS: Ketorolac 30 MG/ML SDV IM ONE (23:37)
[2023-09-27 23:58] LABS: APPEARANCE,URINE CLEAR (CLEAR); BILIRUBIN,URINE NEGATIVE (NEGATIVE); COLOR,URINE YELLOW (YELLOW); GLUCOSE,URINE NEGATIVE (NEGATIVE); KETONES,URINE NEGATIVE (NEGATIVE); LEUKOCYTE ESTERASE,URINE SMALL (NEGATIVE); NITRITE,URINE NEGATIVE (NEGATIVE); OCCULT BLOOD,URINE NEGATIVE (NEGATIVE); PROTEIN,URINE NEGATIVE (NEGATIVE); UROBILINOGEN,URINE 0.2 EU/dL (0.2-1.0)
[2023-09-28 00:03] LABS: RBC,URINE 0-5 (0-5)
[2023-09-28 00:04] LABS: AMORPHOUS SEDIMENT,URINE NOT SEEN; BACTERIA,URINE FEW; EPITHELIAL CELLS,URINE RARE; MUCUS,URINE RARE; WBC,URINE 0-5 (0-5)
[2023-09-28 00:26] LABS: BASOPHILS ABSOLUTE AUTO 0.05 K/uL (0.00-0.10); BASOPHILS PERCENT AUTO 0.9 % (0.1-1.3); EOSINOPHILS ABSOLUTE AUTO 0.31 K/uL (0.00-0.40); EOSINOPHILS PERCENT AUTO 5.9 % (0.0-5.4); HEMATOCRIT 38.4 % (38.4-49.7); HEMOGLOBIN 13.7 g/dL (12.9-16.9); IMMATURE GRAN ABSOLUTE AUTO 0.06 K/uL (0.00-0.23); IMMATURE GRAN PERCENT AUTO 1.1 % (0.0-0.7); LYMPHOCYTES ABSOLUTE AUTO 1.93 K/uL (0.8-3.3); LYMPHOCYTES PERCENT AUTO 36.5 % (11.4-47.7); MEAN CORPUSCULAR HEMOGLOBIN 31.1 pg (31.6-35.5); MEAN CORPUSCULAR HGB CONC 35.7 g/dL (31.6-35.5); MEAN CORPUSCULAR VOLUME 87.1 fL (81.4-99.0); MONOCYTES ABSOLUTE AUTO 0.68 K/uL (0.20-0.90); MONOCYTES PERCENT AUTO 12.9 % (3.3-12.6); NEUTROPHILS ABSOLUTE AUTO 2.26 K/uL (1.0-7.6); NEUTROPHILS PERCENT AUTO 42.7 % (40.0-78.1); PLATELET COUNT,PLT 155 K/uL (130-375); RED BLOOD CELL COUNT 4.41 M/uL (4.14-5.76); WHITE BLOOD CELL COUNT,WBC 5.3 K/uL (3.2-11.0)
[2023-09-28 00:29] LABS: ANION GAP 9.5 mmol/L (5.0-14.0); CALCIUM 8.9 mg/dL (8.5-10.1); CREATININE 1.3 mg/dL (0.8-1.3); EST CRCL DRUG DOSING (CG) 80.33 mL/min; POTASSIUM,K 3.5 mmol/L (3.6-5.2)
[2023-09-28] MEDS: Tamsulosin 0.4 MG Cap.ER PO ONE (00:36)
[2023-09-28 00:54] VITALS: BP 160/106; PULSE 86
== END 2023-09-28 00:52 | disposition home or self-care (01) ==
LOC: JP.ED 23:00
DX: N45.1 Epididymitis (principal); N13.2 Hydronephrosis with renal and ureteral calculous obstruction; I10 Essential (primary) hypertension; Z79.899 Other long term (current) drug therapy
CPT/HCPCS: 36415; 74176; 80048; 81001; 85025; 96372; 99284; A9270-GY; J1885

== ENCOUNTER 2024-01-19 13:32 | Emergency (ER) | payer MEDICAID ==
[2024-01-19 14:16] LABS: BASOPHILS ABSOLUTE AUTO 0.05 K/uL (0.00-0.10); BASOPHILS PERCENT AUTO 0.6 % (0.1-1.3); EOSINOPHILS ABSOLUTE AUTO 0.09 K/uL (0.00-0.40); EOSINOPHILS PERCENT AUTO 1.1 % (0.0-5.4); HEMATOCRIT 45.6 % (38.4-49.7); HEMOGLOBIN 16.9 g/dL (12.9-16.9); IMMATURE GRAN PERCENT AUTO 0.2 % (0.0-0.7); LYMPHOCYTES ABSOLUTE AUTO 3.36 K/uL (0.8-3.3); LYMPHOCYTES PERCENT AUTO 41.2 % (11.4-47.7); MEAN CORPUSCULAR HEMOGLOBIN 32.1 pg (31.6-35.5); MEAN CORPUSCULAR HGB CONC 37.1 g/dL (31.6-35.5); MEAN CORPUSCULAR VOLUME 86.5 fL (81.4-99.0); MONOCYTES ABSOLUTE AUTO 0.46 K/uL (0.20-0.90); MONOCYTES PERCENT AUTO 5.6 % (3.3-12.6); NEUTROPHILS ABSOLUTE AUTO 4.17 K/uL (1.0-7.6); NEUTROPHILS PERCENT AUTO 51.3 % (40.0-78.1); PLATELET COUNT,PLT 279 K/uL (130-375); RED BLOOD CELL COUNT 5.27 M/uL (4.14-5.76); WHITE BLOOD CELL COUNT,WBC 8.2 K/uL (3.2-11.0)
[2024-01-19 14:17] LABS: IMMATURE GRAN ABSOLUTE AUTO 0.02 K/uL (0.00-0.23)
[2024-01-19] MEDS: Ibuprofen 600 MG Tab PO ONE (14:37)
[2024-01-19 14:39] LABS: ANION GAP 16.6 mmol/L (5.0-14.0); CALCIUM 9.2 mg/dL (8.5-10.1); CREATININE 1.3 mg/dL (0.8-1.3); EST CRCL DRUG DOSING (CG) 80.33 mL/min; POTASSIUM,K 3.6 mmol/L (3.6-5.2)
[2024-01-19 14:42] VITALS: BP 141/108; PULSE 99
[2024-01-19 15:30] LABS: AMPHETAMINES SCREEN, URINE NEGATIVE (NEGATIVE); BARBITURATE SCREEN,URINE NEGATIVE (NEGATIVE); BENZODIAZEPINES SCREEN,URINE NEGATIVE (NEGATIVE); METHADONE SCREEN, URINE NEGATIVE (NEGATIVE); METHAMPHETAMINES SCREEN, URINE NEGATIVE (NEGATIVE); OXYCODONE SCREEN,URINE NEGATIVE (NEGATIVE); PROPOXYPHENE SCREEN,URINE NEGATIVE (NEGATIVE); THC SCREEN,URINE 50 NG/ML NEGATIVE (NEGATIVE)
== END 2024-01-19 17:02 | disposition home or self-care (01) ==
LOC: JP.ED 13:32
DX: F10.120 Alcohol abuse with intoxication, uncomplicated (principal); I10 Essential (primary) hypertension
CPT/HCPCS: 36415; 80048; 80305; 80307; 85025; 99284; A9270

== ENCOUNTER 2024-05-19 16:55 | Emergency (ER) | payer MEDICAID ==
[2024-05-19 19:09] VITALS: BP 133/80; PULSE 64
== END 2024-05-19 18:53 | disposition home or self-care (01) ==
LOC: JP.ED 16:55
DX: R09.1 Pleurisy (principal); I10 Essential (primary) hypertension; Z86.16 Personal history of COVID-19; Z79.899 Other long term (current) drug therapy
CPT/HCPCS: 71046; 71046-26; 99284

== ENCOUNTER 2024-05-27 09:29 | Emergency (ER) | payer MEDICAID, OTHER ==
[2024-05-27 09:39] VITALS: BP 142/79; PULSE 84
[2024-05-27] MEDS: Bupivacaine 0.25% 10 ML SDV INJECT ONE (10:23)
[2024-05-27] MEDS: Bacitracin Oint 1 GM U/D Packet TOP ONE (10:23)
== END 2024-05-27 10:32 ==
LOC: JP.ED 09:29
DX: L02.213 Cutaneous abscess of chest wall (principal); I10 Essential (primary) hypertension; Z86.16 Personal history of COVID-19; Z79.899 Other long term (current) drug therapy
CPT/HCPCS: 99283; J3490